=== PATIENT | female | born 1990 | race Caucasian/White ===

== ENCOUNTER 2021-07-10 15:03 | Emergency (ER) | payer OTHER ==
[2021-07-10 17:09] LABS: BILIRUBIN NEGATIVE (NEGATIVE); BLOOD TRACE-INTACT Ery/uL (NEGATIVE); COLOR YELLOW (YELLOW); GLUCOSE (U) NORMAL (NORMAL); LEUKOCYTES NEGATIVE Leu/uL (NEGATIVE); NITRITE NEGATIVE (NEGATIVE); PROTEIN NEGATIVE (NEGATIVE); SPECIFIC GRAVITY 1.015 (1.001-1.030); UROBILINOGEN 0.2 mg/dL (0.2-1.0); pH 7.5 (5.0-9.0)
[2021-07-10 17:09] LABS: BASOPHIL 0.3 % (0-2); EOSINOPHIL 0.1 % (0-5); HCT 40.8 % (37.0-47.0); HGB 13.9 g/dl (12.5-16.0); LYMPHOCYTE 8.5 % (15-48); MCH 30.2 pg (25.0-31.0); MCHC 34.1 g/dL (32.0-36.0); MCV 88.5 fL (78.0-100.0); MONOCYTE 2.7 % (0-12); MPV 10.1 fL (6.0-9.5); NEUTROPHIL 87.9 % (41-80); NRBC 0; PLT 246 K/uL (150-400); RBC 4.61 M/uL (4.20-5.40); RDW 12.1 % (11.5-14.0); WBC 9.4 K/uL (4.0-10.5)
[2021-07-10 17:18] LABS: CLARITY SLIGHTLY HAZY (CLEAR)
[2021-07-10 17:19] LABS: AMORPHOUS PHOSPHATE CRYSTALS MODERATE; BACTERIA 1+; URINARY WBC RARE
[2021-07-10 17:27] LABS: ALBUMIN 4.2 g/dL (3.4-5.0); BILIRUBIN - TOTAL 0.3 mg/dL (0.2-1.0); BUN/CREAT RATIO (CALC) 16.9 RATIO; CREATININE 0.77 mg/dL (0.51-0.95); POTASSIUM 5.7 mmol/L (3.5-5.1); TOTAL PROTEIN 8.2 g/dL (6.4-8.2)
[2021-07-10 19:56] LABS: CORONAVIRUS 2019 SARS-COV-2 NEGATIVE (NEGATIVE); INFLUENZA A NAA NEGATIVE (NEGATIVE)
[2021-07-10] MEDS ORDERED: ONDANSETRON ODT4 MG PO (20:36)
== END 2021-07-10 20:50 | disposition home or self-care (01) ==
LOC: FER 15:03
PROVIDERS: Physician Assistant
DX: R51.9 Headache, unspecified (principal); R11.2 Nausea with vomiting, unspecified; Z20.822 Contact with and (suspected) exposure to COVID-19
CPT/HCPCS: 36415; 70450; 80053; 81001; 84132; 85025; 93005; J1200; J1885; J2405; J7030; U0002